=== PATIENT | female | born 1985 | race Caucasian/White ===

== ENCOUNTER 2019-03-10 10:27 | Inpatient (IN) | payer OTHER, BC, SELFPAY ==
[2015-11-09 12:14] VITALS: BMI 27.1
[2019-03-10 10:42] VITALS: BMI 28.0
[2019-03-10] MEDS: Lactated Ringers 1,000 ML 50 ML IV (11:00)
[2019-03-10 11:51] LABS: Absolute Neutrophil Count 4.4 X10^3/uL (2.0-7.7); Basophil# 0.02 X10^3/uL; Basophil% 0.3 % (0-1); Eosinophil# 0.05 X10^3/uL; Eosinophils% 0.8 % (0-5); Hematocrit 39.7 % (37-47); Lymphocyte % 20.5 % (19-41); Mean Corp Hgb Conc 32.7 g/dL (32-36); Mean Corpuscular Hgb 30.5 pg (27.0-32.0); Mean Corpuscular Volume 93.2 fL (81-99); Monocyte# 0.51 X10^3/uL; NRBC Flagged by Analyzer 0 % (0-5); Neutrophil # 4.43 X10^3/uL (2.7-7.7); Neutrophil % 69.9 % (47-70); Platelet Count 154 K/mm3 (150-450); RBC Distribution Width CV 12.9 % (11.6-14.6); RBC Distribution Width SD 43.6 fl (35.1-43.9); Red Blood Count 4.26 M/mm3 (4.2-5.4); White Blood Count 6.3 K/mm3 (4.4-11.0)
[2019-03-10] MEDS: Lactated Ringers 500 ML 999 ML IV ×2 (12:11→13:05)
[2019-03-10] MEDS: Oxytocin 30 units/NS 500 ml 30 UNITS/500 ML IV.SOLN IV (12:33)
[2019-03-10] MEDS: fentaNYL-bupivacaine (epidural) 100 ML BAG EPIDURAL (12:55)
[2019-03-10] MEDS: Ondansetron 4 MG/2 ML Vial IV (13:37)
--- NOTE | 2019-03-10 14:35 | HP.PCM_ITS ---
History Date of Admission: 03/10/19 Final GÉNESIS: 03/16/19 Gestational age: 39 Weeks and 1 Days History of this : Patient presents for induction of labor for hemorrhoid pain in . Surgical History: Surgical History (Last Updated 03/10/19 @ 14:39 by Chris Mckeon) H/O breast biopsy Z98.890 H/O rhinoplasty Z98.890 Allergies Penicillins [PCN] Allergy (Verified 03/10/19 11:55) Rash Home Medications: Home Medications Vits [Prenatabs FA ] 1 tab PO DAILY 10/30/15 Smoking Status: Former smoker Alcohol: None Number of Fetus(es): 1 NST - FHR Rate Baby A Baseline: 120 Variability:: Moderate Accelerations:: 15 x 15 Decelerations:: None Uterine Activity:: Q 2-3 minutes History Past Pregnancies: Past Pregnancies Delivery Date Name GA/ Weeks Outcome Route Wt Sex Labor Length Anesthesia Delivery Location Provider FOB Labs: See [facility] H&P Physical Exam General: Alert, Oriented x3 Abdomen: Soft, Gravid Neurological: Cranial nerves II-XII grossly intact ELIGIBILITY EXAMINER: Normal external genitalia Estimated gestational size: Appropriate for gestational size Presentation: Cephalic Cervix Dilation (cm): 4 Station: -2 Effacement (%): 70 Assessment/Plan This is a 33 year-old, G2, P1001, at 39&1 weeks gestational age. Admit to L&D Induction of labor for hemorrhoid pain - on pitocin, s/p AROM clear fluid & IUPC placed Pain - comfortable with epidural GBS negative EFW less than 4500g, patient with adequate pelvis Routine care
[2019-03-10] MEDS: Oxytocin 30 units/NS 500 ml 30 UNITS/500 ML IV.SOLN 334 UNITS IV (16:38)
--- NOTE | 2019-03-10 16:56 | PCM.OPRPT ---
Vaginal Delivery Maternal Presentation: Elective Induction Method of Induction: Pitocin, Amniotomy Amniotic Membrane Rupture Type: Artificial Amniotic Fluid Description: Clear Final GÉNESIS: 03/16/19 Gestational age: 39 Weeks and 1 Days Date of Procedure: 03/10/19 Pre-Operative Diagnosis: (1) IUP @ 39&1 (2) Maternal hemorrhoids Post-Operative Diagnosis: (2) Same Surgery/ Procedure Performed: Spontaneous Vaginal Delivery Type of Anesthesia: Epidural Description of Procedure: Patient prepped & draped in stirrups when C/C/+2. She pushed to deliver head. Shoulders & body easily followed. 3VC clamped & cut in delayed fashion. Placenta delivered with gentle traction. Good uterine tone obtained. Presentation: MINAL Placental Delivery Description: Expressed Placenta Disposition: [facility] Cord Vessel Description: 3 Vessels Cord Entanglement: None Estimated Blood Loss: 350ml Infant A gender: Female - Ysabel (1 minute): 8 (5 minute): 9 Episiotomy Description: None Laceration: 2nd degree - perineal - repaired with 3-0 vicryl Medications given after delivery: IV Pitocin Complications: None
[2019-03-10] MEDS: Hydrocortisone 2.5% Crm 1 APPLIC TOPICAL (17:28)
[2019-03-10] MEDS: Dibucaine 30 GM Tube 1 APPLIC TOPICAL (17:29)
[2019-03-10] MEDS: Naproxen 250 MG Tablet 500 MG PO (17:40)
[2019-03-10 20:08] VITALS: BP 110/67; PULSE 87; RESP 16; TEMP 37.1; O2SAT 97
[2019-03-11] MEDS: Senna/Docusate Sodium 1 Tablet PO (00:07)
[2019-03-11] MEDS: Acetaminophen 500 MG Tablet 1000 MG PO ×2 (00:07→08:45)
[2019-03-11] MEDS: Hydrocortisone 2.5% Crm 1 APPLIC TOPICAL (00:09)
[2019-03-11] MEDS: Dibucaine 30 GM Tube 1 APPLIC TOPICAL (00:10)
[2019-03-11 00:12] VITALS: BP 111/66; PULSE 59; RESP 16; TEMP 37.1
[2019-03-11 03:43] VITALS: BP 101/60; PULSE 60; RESP 16; TEMP 36.6
[2019-03-11] MEDS: Naproxen 250 MG Tablet 500 MG PO ×2 (03:54→16:01)
[2019-03-11 08:53] VITALS: BP 107/73; PULSE 71; RESP 16; TEMP 37.2; O2SAT 100
[2019-03-11 11:42] VITALS: BP 112/68; PULSE 69; RESP 16; TEMP 37.3; O2SAT 100
--- NOTE | 2019-03-11 12:57 | PCM.PN.OB ---
Subjective: Pain controlled. Hemorrhoid pain is better that before delivery. - Physical Exam Vitals/I&O's: Vital Signs Temp Pulse Resp BP Pulse Ox 99.1 F 69 16 112/68 100 03/11/19 11:42 03/11/19 11:42 03/11/19 11:42 03/11/19 11:42 03/11/19 11:42 Oxygen Delivery Method Room Air Weight: 173 lb 8.061 oz Body Mass Index (BMI) 28.0 Intake and Output for Last 24 Hours 03/09/19 03/10/19 03/11/19 23:59 23:59 23:59 Intake Total 3176.83 / 3176.83 Output Total 1850 / 1850 Balance 1326.83 / 1326.83 General: Alert, Oriented x3 Abdomen: Soft, Non Tender, Non-Distended - ff mid & below umb Extremities: No Calf Tenderness Current Medications Acetaminophen (Tylenol) 1,000 mg PO Q8H PRN PRN PRN Reason: Pain Score 1-05/09 Last Admin: 03/11/19 08:45 Dose: 1,000 mg Documented by: Bisacodyl (Dulcolax) 10 mg RECTAL UD PRN PRN Reason: If no BM Dibucaine (Dibucaine) 1 applic TOPICAL TID PRN PRN; Protocol PRN Reason: Discomfort Last Admin: 03/11/19 00:10 Dose: 1 applicatio Documented by: Hydrocortisone (Hytone) 1 applic TOPICAL TID PRN PRN; Protocol PRN Reason: Discomfort Last Admin: 03/11/19 00:09 Dose: 1 applicatio Documented by: Methylergonovine Maleate (Methergine) 0.2 mg IM X1 PRN PRN Reason: Excess bleeding/uterine atony Naproxen (Naprosyn) 500 mg PO Q8H PRN PRN PRN Reason: Pain Score 1-310 Last Admin: 03/11/19 03:54 Dose: 500 mg Documented by: Ondansetron HCl (Zofran) 4 mg IV Q4H PRN PRN PRN Reason: Nausea Oxycodone HCl (Oxyir) 5 - 10 mg PO Q4H PRN PRN PRN Reason: Pain Score 4-10/10 Senna/Docusate Sodium (Senokot-S, Paula-Colace) 1 - 2 tablet PO DAILY PRN PRN PRN Reason: Constipation Last Admin: 03/11/19 00:07 Dose: 2 tablet Documented by: Simethicone (Mylicon) 80 mg PO PCHS PRN PRN Reason: Indigestion/Stomach pain Sodium Chloride () 5 - 15 ml IV UD PRN PRN Reason: SALINE FLUSH Medical Necessity - Tobacco Use Smoking Status: Former smoker Assessment/Plan PPD#1 Routine care Hemorrhoids - continue current regimen
[2019-03-11 16:04] VITALS: BP 104/65; PULSE 70; RESP 18; TEMP 36.9; O2SAT 100
[2019-03-11 19:36] VITALS: BP 110/65; PULSE 68; RESP 16; TEMP 37.2; O2SAT 98
[2019-03-12 02:22] VITALS: BP 101/62; PULSE 61; RESP 18; TEMP 36.6
[2019-03-12 09:05] VITALS: BP 102/72; PULSE 76; RESP 16; TEMP 36.3; O2SAT 98
--- NOTE | 2019-03-12 09:06 | PCM.PN.OB ---
Subjective: Patient is doing well. Average lochia. States hemorrhoid pain is already significantly improved since delivery. No other complaints. - Physical Exam Vitals/I&O's: Vital Signs Temp Pulse Resp BP Pulse Ox 97.9 F 61 18 101/62 98 03/12/19 02:22 03/12/19 02:22 03/12/19 02:22 03/12/19 02:22 03/11/19 19:36 Oxygen Delivery Method Room Air Weight: 78.7 kg Body Mass Index (BMI) 28.0 Intake and Output for Last 24 Hours 03/10/19 03/11/19 03/12/19 23:59 23:59 23:59 Intake Total 3176.83 / 3176.83 Output Total 1850 / 1850 Balance 1326.83 / 1326.83 General: Alert, Cooperative, No apparent distress Current Medications Acetaminophen (Tylenol) 1,000 mg PO Q8H PRN PRN PRN Reason: Pain Score 1-3 Last Admin: 03/11/19 08:45 Dose: 1,000 mg Documented by: Bisacodyl (Dulcolax) 10 mg RECTAL UD PRN PRN Reason: If no BM Dibucaine (Dibucaine) 1 applic TOPICAL TID PRN PRN; Protocol PRN Reason: Discomfort Last Admin: 03/11/19 00:10 Dose: 1 applicatio Documented by: Hydrocortisone (Hytone) 1 applic TOPICAL TID PRN PRN; Protocol PRN Reason: Discomfort Last Admin: 03/11/19 00:09 Dose: 1 applicatio Documented by: Methylergonovine Maleate (Methergine) 0.2 mg IM X1 PRN PRN Reason: Excess bleeding/uterine atony Naproxen (Naprosyn) 500 mg PO Q8H PRN PRN PRN Reason: Pain Score 1-310 Last Admin: 03/11/19 16:01 Dose: 500 mg Documented by: Ondansetron HCl (Zofran) 4 mg IV Q4H PRN PRN PRN Reason: Nausea Oxycodone HCl (Oxyir) 5 - 10 mg PO Q4H PRN PRN PRN Reason: Pain Score 4-10/10 Senna/Docusate Sodium (Senokot-S, Paula-Colace) 1 - 2 tablet PO DAILY PRN PRN PRN Reason: Constipation Last Admin: 03/11/19 00:07 Dose: 2 tablet Documented by: Simethicone (Mylicon) 80 mg PO PCHS PRN PRN Reason: Indigestion/Stomach pain Sodium Chloride () 5 - 15 ml IV UD PRN PRN Reason: SALINE FLUSH Medical Necessity - Tobacco Use Smoking Status: Former smoker Assessment/Plan day 2. Patient is doing well. is breast-feeding and doing well. Desires discharge home today.
--- NOTE | 2019-03-12 09:07 | DCINST_ITS ---
Discharge Diet: No Restrictions Discharge Activity: Return to Normal Activity, May not drive while taking narcotic pain medications., May Shower May resume sexual activity in: 4-6 weeks Additional Activity Instructions:: Nothing in the vagina for 4-6 weeks. You may return to work/school in 6 weeks. Call your doctor if your incision/area has: Continuous Slow Oozing, Sudden Increased Bleeding, Increased Pain/ Swelling, Increased Redness, Foul Smelling Discharge Additional Instructions: If you experience any of the following, contact your healthcare provider. * Bleeding that soaks a pad every hour for 2 hours * Fever 100.4 or higher * Unrelieved incision or abdominal pain * Swelling, redness, discharge or bleeding from your incision or episiotomy site * Your incision begins to separate * Problems urinating (including inability to urinate or burning while urinating). * Visual changes * Severe headache * Flu-like symptoms * Pain or redness in one of both of your breasts * Pain, warmth, tenderness or swelling in your legs, especially the calf area * Frequent nausea and vomiting * Symptoms of depression or anxiety If you experience any of the following, call 911 or go to the nearest Emergency Room. * Chest pain * Problems breathing * Seizure activity * Partial or complete paralysis of a body part, slurred speech, weakness or drooping of the face, or a sudden inability to walk or hold your balance Allergies/Adverse Reactions: Allergies Penicillins [PCN] Allergy (Verified 03/10/19 11:55) Rash Medications to take at Discharge Vits [Prenatabs FA ] 1 tab PO DAILY 10/30/15 Please Follow Up With: Chris Mcekon - [phone] When: Call to make an appointment with your doctor in 6 weeks. If you had elevated Blood Pressure or 4th degree laceration you will need to be seen in 2 weeks. Primary Care Physician: Partha Brar III, MD [Primary Care Provider] - Test Results: Test results from this visit will be discussed in further detail at your follow- up appointment, if applicable.
--- NOTE | 2019-03-12 09:07 | PCM.DCVAG ---
Discharge Diet: No Restrictions Discharge Activity: Return to Normal Activity, May not drive while taking narcotic pain medications., May Shower May resume sexual activity in: 4-6 weeks Additional Activity Instructions:: Nothing in the vagina for 4-6 weeks. You may return to work/school in 6 weeks. Call your doctor if your incision/area has: Continuous Slow Oozing, Sudden Increased Bleeding, Increased Pain/ Swelling, Increased Redness, Foul Smelling Discharge Additional Instructions: If you experience any of the following, contact your healthcare provider. Bleeding that soaks a pad every hour for 2 hours Fever 100.4 or higher Unrelieved incision or abdominal pain Swelling, redness, discharge or bleeding from your incision or episiotomy site Your incision begins to separate Problems urinating (including inability to urinate or burning while urinating). Visual changes Severe headache Flu-like symptoms Pain or redness in one of both of your breasts Pain, warmth, tenderness or swelling in your legs, especially the calf area Frequent nausea and vomiting Symptoms of depression or anxiety If you experience any of the following, call 911 or go to the nearest Emergency Room. Chest pain Problems breathing Seizure activity Partial or complete paralysis of a body part, slurred speech, weakness or drooping of the face, or a sudden inability to walk or hold your balance Allergies/Adverse Reactions: Allergies Penicillins [PCN] Allergy (Verified 03/10/19 11:55) Rash Medications to take at Discharge Vits [Prenatabs FA ] 1 tab PO DAILY 10/30/15 Please Follow Up With: Chris Mckeon - [phone] When: Call to make an appointment with your doctor in 6 weeks. If you had elevated Blood Pressure or 4th degree laceration you will need to be seen in 2 weeks. Primary Care Physician: Partha Brar III, MD [Primary Care Provider] - Test Results: Test results from this visit will be discussed in further detail at your follow-up appointment, if applicable.
[2019-03-12 09:33] VITALS: BP 102/72; PULSE 81; RESP 16; TEMP 36.7; O2SAT 98
[2019-03-12] MEDS: Senna/Docusate Sodium 1 Tablet PO (10:16)
== END 2019-03-12 10:30 | disposition home or self-care (01) | DRG 807 ==
PROVIDERS: Admitting Provider Obstetrics & Gynecology; Family Provider Family Medicine; PCP Family Medicine; Referring Provider Obstetrics & Gynecology; Visit Provider Obstetrics & Gynecology
DX: O75.89 Other specified complications of labor and delivery (principal); Z37.0 Single live birth; K64.9 Unspecified hemorrhoids; Z3A.39 39 weeks gestation of pregnancy; O70.1 Second degree perineal laceration during delivery; Z87.891 Personal history of nicotine dependence
CPT/HCPCS: 59025; 59050; 85025; 86850; 86900; 86901; 99218; J7120; G0378; J2405